=== PATIENT | female | born 1950 | race American Indian/Alaskan Native ===

== ENCOUNTER 2016-11-11 09:25 | Outpatient (CLI) | payer MEDICARE ==
--- NOTE | 2016-11-11 11:48 | Ultrasound Report ---
RIGHT BREAST ULTRASOUND: 11/11/16 09:25:00 CLINICAL: A palpable lump in the upper inner quadrant of the reconstructed right breast. Status post right mastectomy for DCIS. COMPARISON: None. FINDINGS: Ultrasound demonstrated a heterogeneous predominantly hyperechoic superficial subcutaneous mass near the site of a previous port insertion at 12:30 o'clock 12 cm from the nipple. It measures 1.4 x 1.0 x 0.6 cm. IMPRESSION: A 1.4 cm subcutaneous mass at the site of a right port. The sonographic characteristics suggest benign fat necrosis. Recommend clinical followup and ultrasound followup in 3-6 months. BI-RADS 3 - - Probably Benign
== END 2016-11-11 09:26 | disposition home or self-care (01) ==
LOC: SPVWC 09:25
PROVIDERS: ATTEND Internal Medicine Hematology & Oncology
DX: D05.11 Intraductal carcinoma in situ of right breast (principal); N63 Unspecified lump in breast; Z85.038 Personal history of other malignant neoplasm of large intestine; Z90.11 Acquired absence of right breast and nipple

== ENCOUNTER 2018-04-21 14:55 | Emergency (ER) | payer MEDICARE ==
--- NOTE | 2018-04-21 16:31 | Emergency Department Report ---
Blank Doc - Documentation Documentation: Patient is a 67-year-old asthmatic female past history of colon cancer which is in remission as well as a past medical history of hemorrhoids who is complaining of rectal pain. Patient states she started using some Preparation H several days ago and started Kasandra feeling somewhat better but the pain then came back and is worse. Patient will be sent to a treatment room and will be assessed.
--- NOTE | 2018-04-21 17:19 | Emergency Department Report ---
ED Female HPI - General Chief complaint: Rectal Pain Stated complaint: PAIN IN RECTUM Time Seen by Provider: 04/21/18 16:12 Source: patient Mode of arrival: Ambulatory Limitations: No Limitations - History of Present Illness Initial comments: This is a 67-year-old -[place] female who presents with anal pain for 4 days. Patient has a past medical history of colon cancer, hypertension, and hemorrhoids. Patient states she is using Preparation H suppositories with no improvement of symptoms. Patient denies bleeding, discharge, pelvic pain, shortness of breath, and abdominal pain. MD Complaint: other (anal pain) Onset/Timin -: days(s) Location: perineum Radiation: non-radiating Severity: severe Severity scale (0 -10): 10 Quality: aching Consistency: constant Improves with: none Worsens with: other (bowel movements) Are you Now?: No Associated Symptoms: denies other symptoms - Related Data Previous Rx's Medication Instructions Recorded Last Taken Type Hydrocortisone [Anucort-HC SUPPOS] 25 mg RC BID #14 supp.rect 04/21/18 Unknown Rx Allergies Allergy/AdvReac Type Severity Reaction Status Date / Time No Known Allergies Allergy Verified 04/21/18 15:22 ED Review of Systems ROS: Stated complaint: PAIN IN RECTUM Other details as noted in HPI Constitutional: denies: chills, fever Respiratory: denies: cough, shortness of breath, wheezing Cardiovascular: denies: chest pain, palpitations Gastrointestinal: other (rectal pain). denies: abdominal pain, nausea, diarrhea Genitourinary: denies: urgency, dysuria, discharge Skin: denies: rash, lesions Neurological: denies: headache, weakness, paresthesias ED Past Medical Hx - Past Medical History Previous Medical History?: Yes Hx Hypertension: Yes Hx of Cancer: Yes (colon CA 2004) - Surgical History Past Surgical History?: Yes Hx Cholecystectomy: Yes Additional Surgical History: partial colon removal - Social History Smoking Status: Former Smoker Substance Use Type: Alcohol - Medications Home Medications: Home Medications Medication Instructions Recorded Confirmed Last Taken Type Hydrocortisone [Anucort-HC SUPPOS] 25 mg RC BID #14 supp.rect 04/21/18 Unknown Rx ED Physical Exam - General Limitations: No Limitations General appearance: alert, in no apparent distress, obese - Respiratory Respiratory exam: Present: normal lung sounds bilaterally. Absent: respiratory distress - Cardiovascular Cardiovascular Exam: Present: regular rate, normal rhythm. Absent: systolic murmur, diastolic murmur, rubs, gallop - GI/Abdominal GI/Abdominal exam: Present: soft, normal bowel sounds - Rectal Rectal exam: Present: normal rectal tone, hemorrhoids (internal hemorrhoids, erythematous external hemorrhoids, tender). Absent: mass, tenderness - Neurological Exam Neurological exam: Present: alert, oriented X3 - Psychiatric Psychiatric exam: Present: normal affect, normal mood - Skin Skin exam: Present: warm, dry, intact, normal color. Absent: rash ED Course Vital Signs 04/21/18 15:22 Temperature 98.6 F Pulse Rate 61 Respiratory 18 Rate Blood Pressure 137/74 O2 Sat by Pulse 100 Oximetry ED Medical Decision Making - Medical Decision Making Patient was examined by me and screened by Dr. Islas. Vitals are normal and patient is in no acute distress. On physical exam external and internal hemorrhoids palpated Start anucort suppository. Plan discussed with patient to discharge home and treat outpatient. Patient discharged home in stable condition. Follow up with PCP in 2-3 days. Critical care attestation.: If time is entered above; I have spent that time in minutes in the direct care of this critically ill patient, excluding procedure time. ED Disposition Clinical Impression: Bleeding external hemorrhoids, Internal hemorrhoids, Rectal pain Disposition: TO HOME OR SELFCARE Is pt being admited?: No Does the pt Need Aspirin: No Condition: Stable Instructions: Hemorrhoids (ED) Additional Instructions: Moist, gentle cleaning following a bowel movement to minimize anal irritation. Avoid excessive straining at stool and to avoid sitting on the toilet for long periods of time. Constipation can be a causative factor in hemorrhoid formation, which can be avoided by adding fiber and fluids to the diet; consuming 25 g to 30 g of fiber daily is recommended, either with high-fiber foods or with commercial fiber supplements. Follow up with your primary care provider in 2-3 days. Prescriptions: Hydrocortisone [Anucort-HC SUPPOS] 25 mg RC BID #14 supp.rect Referrals: KATIANA AKINS MD [Staff Physician] - 3-5 Days [facility] [Provider Group] - 3-5 Days [facility] [Provider Group] - 3-5 Days Time of Disposition: 17:25 Print Language: SLOVENIAN
[2018-04-21 17:53] VITALS: BP 136/76
== END 2018-04-21 17:51 | disposition home or self-care (01) ==
LOC: ED 14:55
DX: K62.5 Hemorrhage of anus and rectum (principal); I10 Essential (primary) hypertension; Z90.49 Acquired absence of other specified parts of digestive tract; Z87.891 Personal history of nicotine dependence
CPT/HCPCS: 99282